=== PATIENT | female | born 1995 | race Caucasian/White ===

== ENCOUNTER 2024-06-04 10:12 | Emergency (ER) | payer OTHER, SELFPAY ==
--- NOTE | 2024-06-04 10:14 | ED.GENADULT ---
HPI - General Adult General Chief complaint: Upper Respiratory Infection Stated complaint: COUGH/CONGESITON/SOB/CP/TIRED/DECREASED APPETITE Time Seen by Provider: 06/04/24 10:14 Source: patient Mode of arrival: ambulatory Limitations: no limitations History of Present Illness HPI narrative: 29-year-old female patient presents to [facility] with complaints of flu-like symptoms for the past 3 days. Patient states she has had fevers, body aches, chills, congestion, coughing and runny nose. Patient states she has been taking [id number] [place] cold and flu for her symptoms. Patient states she is a positive smoker. Related Data Allergies Allergy/AdvReac Type Severity Reaction Status Date / Time Penicillins Allergy Hives Verified 06/04/24 10:26 Review of Systems Review of Systems: CONSTITUTIONAL: Positive fever, body aches and chills, denies sweats. EYES: Denies visual changes, redness, or discharge. ENT: positive rhinorrhea, congestion, denies sore throat, or otalgia. CARDIOVASCULAR: Denies chest pain, palpitations, or edema. RESPIRATORY positive cough , denies dyspnea. GASTROINTESTINAL: Denies abdominal pain, nausea, vomiting, or diarrhea. GENITOURINARY: Denies dysuria or hematuria. SKIN: Denies rash or itching. MUSCULOSKELETAL: Denies back pain, joint pain, or myalgia. NEUROLOGIC: Denies headache, numbness, or weakness. PSYCHIATRIC: Denies anxiety or depression. PMFSH Past Medical History Medical History No significant past medical history Social History Social History (Updated 06/04/24 @ 10:46 by BRISEYDA Mccollum) Smoking status: Current every day smoker Comments At the time of my signature I agree with nursing past medical history, surgical, social, and family history. There is no relevant family history pertinent to the presenting complaint. Exam Narrative: GENERAL: Well-appearing, well-nourished, and in no acute distress. HEAD: Normocephalic, atraumatic. EYES: PERRLA and EOMI. ENT: Nares clear, no rhinorrhea or epistaxis. Mucous membranes moist. posterior pharynx with no erythema, tonsillar enlargement, exudates or lesions present. Bilateral TMs are clear no erythema or foreign bodies the canal. NECK: Supple. No lymphadenopathy CHEST: Slight wheezing noted to left lower and upper lobe on auscultation. No respiratory distress. patient able talk in clear complete sentences. HEART: Regular rate and rhythm. No murmur heard. Normal peripheral pulses. ABDOMEN: Soft, nontender, nondistended, normal active bowel sounds. EXTREMITIES: Normal range of motion. No edema. SKIN: Warm, dry, no rash. NEURO: No focal deficits. Alert and oriented x3. Course Course Level of Care: Express Care Visit Vital Signs Vital signs: Vital Signs Temperature 36.1 C L 06/04/24 10:28 Pulse Rate 125 H 06/04/24 10:28 Respiratory Rate 16 06/04/24 10:28 Blood Pressure 126/84 06/04/24 10:28 Pulse Oximetry 96 06/04/24 10:28 Temperature 36.1 C L 06/04/24 10:28 Pulse Rate 125 H 06/04/24 10:28 Respiratory Rate 16 06/04/24 10:28 Blood Pressure 126/84 06/04/24 10:28 Pulse Oximetry 96 06/04/24 10:28 Vital signs reviewed. Medical Decision Making MDM Narrative Medical decision making narrative: Plan care patient is discharged home with albuterol inhaler. Notified her that she is positive today for influenza which will take time to run its course. The fact that her fever is starting to break is a good sign that she should start feeling better in the next few days. Discussed with patient's highly important she quit smoking for this delays healing, lowers her immune system and she is more likely to have simple infections such as cold and influenza lot longer than nonsmokers. Patient verbalized understanding denies any questions or concerns at this time. Differential Diagnosis Differential Diagnosis: Differential diagnosis: Allergic rhinitis, chronic sinusitis, tonsillitis, acute sinusitis, infectious mononucleosis, seasonal influenza, pertussis, diphtheria, meningococcal disease, viral syndrome, viral bronchitis, RSV, COVID-19 Vital Signs Vital Signs: Vital Signs Temperature 36.1 C L 06/04/24 10:28 Pulse Rate 125 H 06/04/24 10:28 Respiratory Rate 16 06/04/24 10:28 Blood Pressure 126/84 06/04/24 10:28 Pulse Oximetry 96 06/04/24 10:28 Temperature 36.1 C L 06/04/24 10:28 Pulse Rate 125 H 06/04/24 10:28 Respiratory Rate 16 06/04/24 10:28 Blood Pressure 126/84 06/04/24 10:28 Pulse Oximetry 96 06/04/24 10:28 vital signs reviewed. Lab Data Labs: Lab Results 06/04/24 Range/Units 10:37 POC Influenza A Ag Positive (Negative) POC Influenza B Ag Negative (Negative) POC SARS CoV-2 Ag Negative (Negative) Critical Care Time Critical Care Time Critical Care Time: No Discharge Plan Discharge Clinical Impression: Influenza A Patient Disposition: Home, Self-Care Condition: Stable Instructions: Antibiotic Form, Influenza (ED) Additional Instructions: Influenza (the flu) is an infection caused by the influenza virus. The flu is easily spread when an infected person coughs, sneezes, or has close contact with others. You may be able to spread the flu to others for 1 week or longer after signs or symptoms appear. DISCHARGE INSTRUCTIONS: Call your local emergency number (911 in the ) if: You have trouble breathing, and your lips look purple or blue. You have a seizure. Call your doctor if: You are dizzy, or you are urinating less or not at all. You have a headache with a stiff neck, and you feel tired or confused. You have new pain or pressure in your chest. Your symptoms, such as shortness of breath, vomiting, or diarrhea, get worse. Your symptoms, such as fever and coughing, seem to get better, but then get worse. You have new muscle pain or weakness. You have questions or concerns about your condition or care. Medicines: You may need any of the following: Acetaminophen decreases pain and fever. It is available without a doctor's order. Ask how much to take and how often to take it. Follow directions. Read the labels of all other medicines you are using to see if they also contain acetaminophen, or ask your doctor or pharmacist. Acetaminophen can cause liver damage if not taken correctly. Do not use more than 4 grams (4,000 milligrams) total of acetaminophen in one day. NSAIDs , such as ibuprofen, help decrease swelling, pain, and fever. This medicine is available with or without a doctor's order. NSAIDs can cause stomach bleeding or kidney problems in certain people. If you take blood thinner medicine, always ask your healthcare provider if NSAIDs are safe for you. Always read the medicine label and follow directions. Rest as much as you can to help you recover. Patient Language: [place] Prescriptions: New albuterol sulfate [Ventolin HFA] 90 mcg/actuation HFA aerosol inhaler 2 puff INHALATION .Q4 hours PRN (Reason: cough) Qty: 18 0RF Follow-up/Referrals: UNKNOWN,DOCTOR [Non-Staff] - Time of Disposition: 10:44
[2024-06-04 10:28] VITALS: BP 126/84; PULSE 125; RESP 16; TEMP 36.1; O2SAT 96
[2024-06-04 10:39] LABS: EDCOVIDSCREEN Negative (Negative); EDINFLUASCREEN Positive (Negative); EDINFLUBSCREEN Negative (Negative)
== END 2024-06-04 10:58 | disposition home or self-care (01) ==
PROVIDERS: Emergency Provider Nurse Practitioner Family
DX: J10.1 Influenza due to other identified influenza virus with other respiratory manifestations (principal); F17.200 Nicotine dependence, unspecified, uncomplicated; Z20.822 Contact with and (suspected) exposure to COVID-19
CPT/HCPCS: 87426; 87804; 99203; G0463